=== PATIENT | male | born 1950 | race Caucasian/White ===

== ENCOUNTER 2018-06-02 15:42 | Outpatient (CLI) | payer OTHER | END 2018-06-02 15:43 | disposition home or self-care (01) | LOC: RT 15:42 | PROVIDERS: ATTEND Internal Medicine Cardiovascular Disease | DX: E78.5 Hyperlipidemia, unspecified (principal) | CPT/HCPCS: 93005 ==

== ENCOUNTER 2018-08-22 22:34 | Emergency (ER) | payer MEDICARE ==
[2018-08-22 23:01] LABS: BASOPHILS % (AUTO) 0.4 %; EOSINOPHILS # (AUTO) 0.1 10^3/uL (0.0-0.7); EOSINOPHILS % (AUTO) 0.6 %; HGB - HEMOGLOBIN 14.6 g/dL (14.0-18.0); LYMPHOCYTES # (AUTO) 0.9 10^3/uL (1.5-3.5); LYMPHOCYTES % (AUTO) 11.3 %; MEAN CORPUSCULAR HEMOGLOBIN 32.5 pg (27.0-31.0); MEAN CORPUSCULAR HGB CONC 35.3 g/dL (32.0-36.0); MEAN CORPUSCULAR VOLUME 92.2 fL (80.0-94.0); MEAN PLATELET VOLUME 10.5 fL (7.4-11.4); MONOCYTES # (AUTO) 0.4 10^3/uL (0.0-1.0); MONOCYTES % (AUTO) 4.6 %; NEUTROPHILS # (AUTO) 6.5 10^3/uL (1.5-6.6); NEUTROPHILS % (AUTO) 82.7 %; PLT - PLATELET COUNT 145 10^3/uL (130-450); RED BLOOD COUNT 4.49 10^6/uL (4.70-6.10); RED CELL DISTRIBUTION WIDTH 12.4 % (12.0-15.0); WHITE BLOOD COUNT 7.9 x10^3/uL (4.8-10.8)
[2018-08-22 23:13] LABS: ALBUMIN 4.3 g/dL (3.2-5.5); ALBUMIN/GLOBULIN RATIO 1.4 (1.0-2.2); BILIRUBIN,TOTAL 1.2 mg/dL (0.2-1.0); CALCIUM 9.2 mg/dL (8.5-10.3); TOTAL PROTEIN 7.3 g/dL (6.7-8.2)
--- NOTE | 2018-08-22 23:58 | ED Physician Documentation ---
PD HPI NVD - Stated complaint Stated Complaint: NAUSEA/HEAVING/BLOOD IN STOOL - Chief complaint Chief Complaint: Abd Pain - History obtained from History obtained from: Patient - History of Present Illness Timing - onset: Last night Timing - details: Gradual onset, Waxing and waning Associated symptoms: Abdominal pain. No: Fever Improved by: Other (no apparent ameliorating factors, but has been improving spontaneously) Worsened by: Other (no exacerbating factors) Similar symptoms before: Has not had sx before Recently seen: Other (underwent cardiac angio 6 days ago) - Additonal information Additional information: c/o abdominal pain that started last night, developed nausea this evening with 1 episode emesis. Mild back pain. Also BRBPR since yesterday when having BM Review of Systems Constitutional: denies: Fever, Chills, Sweats Cardiac: reports: Reviewed and negative Respiratory: reports: Reviewed and negative GI: reports: Abdominal Pain, Nausea, Vomiting, Bloody / black stool. denies: Abdominal Swelling, Constipation, Diarrhea, Hematemesis : denies: Dysuria, Frequency Musculoskeletal: reports: Back pain PD PAST MEDICAL HISTORY - Past Medical History Past Medical History: Yes Cardiovascular: Hypertension, High cholesterol Other Past Medical History: denies other - Past Surgical History Past Surgical History: No - Present Medications Home Medications: Ambulatory Orders Medication Instructions Recorded Confirmed Atorvastatin [Lipitor] 20 mg PO DAILY 08/22/18 08/22/18 Diazepam 1 tab PO ONCE 08/22/18 08/22/18 Metoprolol Succinate 1 tab PO DAILY 08/22/18 08/22/18 Nitroglycerin [Nitrostat] 1 tab SL PRN PRN 08/22/18 08/22/18 - Allergies Allergies/Adverse Reactions: Allergies Allergy/AdvReac Type Severity Reaction Status Date / Time egg AdvReac Unknown Verified 08/22/18 22:44 peanut AdvReac Nausea Verified 08/22/18 22:44 Sulfa (Sulfonamide AdvReac Rash Verified 08/22/18 22:44 Antibiotics) - Social History Does the pt smoke?: No Smoking Status: Never smoker Does the pt drink ETOH?: Yes Does the pt have substance abuse?: No - Immunizations Immunizations are current?: Yes PD ED PE NORMAL - Vitals Vital signs reviewed: Yes - General General: Alert and oriented X 3, No acute distress, Well developed/nourished - HEENT HEENT: Moist mucous membranes - Cardiac Cardiac: RRR, No murmur - Respiratory Respiratory: No respiratory distress, Clear bilaterally - Abdomen Abdomen: Normal bowel sounds, Soft, Non distended, Other (minimal TTP RUQ without guarding or rebound) - Back Back: No CVA TTP - Derm Derm: Normal color, Warm and dry - Extremities Extremities: No tenderness to palpate, Normal ROM s pain, No edema, Other (right groin flat echymosis (cardiac cath site), nontender and no palpable thrill) Results - Vitals Vitals: Vital Signs - 24 hr 08/22/18 08/22/18 08/23/18 22:39 23:11 00:21 Temperature 36.8 C Heart Rate 55 L 55 L 59 L Respiratory 16 16 16 Rate Blood Pressure 153/86 H 164/90 H 133/58 H O2 Saturation 99 98 98 08/23/18 02:02 Temperature Heart Rate 58 L Respiratory 16 Rate Blood Pressure 142/62 H O2 Saturation 99 Oxygen O2 Source Room air - EKG (time done) No standard instances Rate: Rate (enter#) (56) Rhythm: NSR [place]: Normal Intervals: Normal [place] QRS: Normal Ischemia: Normal ST segments - Labs Labs: Laboratory Tests 08/22/18 08/22/18 08/22/18 22:56 22:56 22:56 WBC 7.9 RBC 4.49 L Hgb 14.6 Hct 41.4 L MCV 92.2 MCH 32.5 H MCHC 35.3 RDW 12.4 Plt Count 145 MPV 10.5 Neut # (Auto) 6.5 Lymph # (Auto) 0.9 L [place] # (Auto) 0.4 Eos # (Auto) 0.1 Baso # (Auto) 0.0 Absolute Nucleated RBC 0.00 Nucleated RBC % 0.0 Sodium 140 Potassium 3.9 Chloride 102 Carbon Dioxide 25 Anion Gap 13.0 BUN 20 Creatinine 1.0 Estimated GFR (MDRD) 75 L Glucose 119 H Calcium 9.2 Total Bilirubin 1.2 H AST 18 ALT 21 Alkaline Phosphatase 53 Troponin I < 0.04 Total Protein 7.3 Albumin 4.3 Globulin 3.0 Albumin/Globulin Ratio 1.4 Lipase 31 Urine Color Urine Clarity Urine pH Ur Specific [place] Urine Protein Urine Glucose (UA) Urine Ketones Urine Occult Blood Urine Nitrite Urine Bilirubin Urine Urobilinogen Ur Leukocyte Esterase Ur Microscopic Review Urine Culture Comments 08/23/18 01:20 WBC RBC Hgb Hct MCV MCH MCHC RDW Plt Count MPV Neut # (Auto) Lymph # (Auto) [place] # (Auto) Eos # (Auto) Baso # (Auto) Absolute Nucleated RBC Nucleated RBC % Sodium Potassium Chloride Carbon Dioxide Anion Gap BUN Creatinine Estimated GFR (MDRD) Glucose Calcium Total Bilirubin AST ALT Alkaline Phosphatase Troponin I Total Protein Albumin Globulin Albumin/Globulin Ratio Lipase Urine Color YELLOW Urine Clarity CLEAR Urine pH 6.0 Ur Specific [place] <=1.005 Urine Protein NEGATIVE Urine Glucose (UA) NEGATIVE Urine Ketones 15 H Urine Occult Blood NEGATIVE Urine Nitrite NEGATIVE Urine Bilirubin NEGATIVE Urine Urobilinogen 0.2 (NORMAL) Ur Leukocyte Esterase NEGATIVE Ur Microscopic Review NOT INDICATED Urine Culture Comments NOT INDICATED - Rads (name of study) CT A/P Radiology: Prelim report reviewed, See rad report PD MEDICAL DECISION MAKING - ED course Complexity details: reviewed results, re-evaluated patient, considered differential, d/w patient ED course: patient declined pain medication as well as antinauseants during ED stay, says symptoms have abated and he does not feel he needs these medications at this time Departure - Departure Disposition: 01 Home, Self Care Clinical Impression: Hematochezia Abdominal pain Qualifiers: Abdominal location: generalized Qualified Code(s): R10.84 - Generalized abdominal pain Condition: Good Health Concerns: abdominal pain, blood per rectum Plan of Treatment: follow up with PCP, return to emergency department if worse Care Goals: resolution of symptoms Assessment: see diagnoses Instructions: ED Abdominal Pain Unkn Cause, ED Hematochezia Stable Follow-Up: Arcadio Macias MD [Primary Care Provider] - Discharge Date/Time: 08/23/18 02:23
[2018-08-23] MEDS ORDERED: IOVERSOL 320 100 ML VIAL IVP ONE ×2 (00:44→01:02)
--- NOTE | 2018-08-23 01:23 | CT Report ---
Reason: abd. pain Procedure Date: 08/23/2018 Accession Number: [id number] / [id number] Procedure: CT - Abdomen/Pelvis W CPT Code: FULL RESULT: EXAM: CT ABDOMEN AND PELVIS EXAM DATE: 08/23/2018 12:59 AM. CLINICAL HISTORY: Abd. pain. COMPARISONS: None. TECHNIQUE: Routine helical CT imaging was performed through the abdomen and pelvis. IV contrast: OPTI 320 100ML. Enteric contrast: No. Reconstructions: Coronal and sagittal. In accordance with CT protocol optimization, one or more of the following dose reduction techniques were utilized for this exam: automated exposure control, adjustment of mA and/or KV based on patient size, or use of iterative reconstructive technique. FINDINGS: ABDOMEN: Lung Bases: Incompletely included lower lungs are grossly clear. Heart size is within normal limits. Coronary artery calcifications. No basilar effusions. Liver: Unremarkable. Spleen: Unremarkable. Pancreas: Unremarkable. Gallbladder/Bile Ducts: Gallbladder is unremarkable. Biliary tree is normal caliber. Adrenal Glands: Unremarkable. Kidneys: No mass, calculi, or hydronephrosis. Peritoneum/Mesentery/Bowel: No free fluid, free air, or collection. No intestinal obstruction or inflammation. 1.6 cm oblong hyperdensity in the stomach, may reflect ingested material. The appendix is within normal limits. Lymph nodes: No mesenteric, periportal, or retroperitoneal lymphadenopathy. Vasculature: Abdominal aorta is nonaneurysmal. Portal vein is patent. Hepatic veins are patent. PELVIS: The bladder is unremarkable for the degree of distention. Prostate is present. No pelvic lymphadenopathy. Bones: No suspicious osseous lesions. IMPRESSION: No acute abnormalities. Coronary artery calcifications. RADIA
[2018-08-23 01:26] LABS: BILIRUBIN,URINE NEGATIVE (NEGATIVE); GLUCOSE, URINE (UA) NEGATIVE (NEGATIVE); KETONES,URINE (UA) 15 mg/dL (NEGATIVE); LEUKOCYTE ESTERASE, URINE NEGATIVE (NEGATIVE); NITRITE,URINE NEGATIVE (NEGATIVE); OCCULT BLOOD,URINE NEGATIVE (NEGATIVE); PROTEIN,URINE NEGATIVE (NEGATIVE); UROBILINOGEN,URINE 0.2 (NORMAL) E.U./dL (NORMAL)
[2018-08-23 01:28] LABS: CLARITY,URINE CLEAR (CLEAR)
[2018-08-23 02:02] VITALS: BP 142/62
== END 2018-08-23 02:23 | disposition home or self-care (01) ==
LOC: ED 22:34
DX: K92.1 Melena (principal); I10 Essential (primary) hypertension
CPT/HCPCS: 74177; 80053; 81003; 83690; 84484; 85025; 93005; 99283; 99284; Q9967; 81001; 87086

== ENCOUNTER 2020-07-12 16:02 | Outpatient (CLI) | payer MEDICARE ==
--- NOTE | 2020-07-12 17:45 | Ultrasound Report ---
PROCEDURE: Carotid Doppler Complete INDICATIONS: CAD TECHNIQUE: Color and pulse Doppler interrogation was performed of both carotid systems, with image documentation and velocity measurements. COMPARISON: None. FINDINGS: Right side: Brachial blood pressure: 119/73 mm Hg. Common carotid artery peak systolic velocity: 76.3 cm/sec. Internal carotid artery peak systolic velocity: 112.2 cm/sec. Internal carotid artery end diastolic velocity: 50.7 cm/sec. External carotid artery peak systolic velocity: 111.6 cm/sec. ICA/CCA peak systolic ratio: 1.5 . Romero scale imaging description: There is calcified plaque present in the carotid bifurcation and pro ximal internal carotid artery with mild, less than 50% stenosis. There is a moderate external carotid artery stenosis. Percent internal carotid artery stenosis: Mild, less than 50% Vertebral artery: Flow direction is antegrade. Left side: Brachial blood pressure: 118/68 mm Hg. Common carotid artery peak systolic velocity: 79.7 cm/sec. Internal carotid artery peak systolic velocity: 82.0 cm/sec. Internal carotid artery end diastolic velocity: 36.5 cm/sec. External carotid artery peak systolic velocity: 8.7 cm/sec. ICA/CCA peak systolic ratio: 1.1 . Romero scale imaging description: There is mild soft plaque present in the carotid bifurcation and pro ximal internal carotid artery. Percent internal carotid artery stenosis: Less than 50% . Vertebral artery: Flow direction is antegrade. IMPRESSION: Mild, bilateral less than 50% internal carotid artery stenoses. The estimate of stenosis included in the report of the imaging study was calculated using the NASCET method Reviewed by: Sergio Blackmon MD on 07/12/2020 5:43 PM PDT Approved by: Sergio Blackmon MD on 07/12/2020 5:43 PM PDT Station ID: [id number]
== END 2020-07-12 16:03 | disposition home or self-care (01) ==
LOC: DI 16:02
PROVIDERS: ATTEND Internal Medicine Cardiovascular Disease
DX: I65.23 Occlusion and stenosis of bilateral carotid arteries (principal)
CPT/HCPCS: 93880